=== PATIENT | male | born 1950 | race Caucasian/White ===

== ENCOUNTER 2023-12-09 07:00 | Outpatient (CLI) | payer MEDICARE ==
--- NOTE | 2023-12-09 16:07 | XRAY Report ---
PROCEDURE: Chest 2V INDICATIONS: FOCAL PNEUMONIA TECHNIQUE: 2 views of the chest were acquired. COMPARISON: None. FINDINGS: Surgical changes and devices: None. Lungs and pleura: No pleural effusions or pneumothorax. Lungs are clear. Mediastinum: Mediastinal contours appear normal. Heart size is normal. Bones and chest wall: No suspicious bony lesions. Overlying soft tissues appear unremarkable. IMPRESSION: No acute cardiopulmonary process. Reviewed by: Janette Singleton MD on 12/09/2023 4:05 PM PDT Approved by: Janette Singleton MD on 12/09/2023 4:05 PM PDT Station ID: [id number]
== END 2023-12-09 23:59 | disposition home or self-care (01) ==
LOC: DI.S 07:00
PROVIDERS: ATTEND Emergency Medicine
DX: J18.8 Other pneumonia, unspecified organism (principal)